=== PATIENT | female | born 1970 | race Caucasian/White ===

== ENCOUNTER 2020-08-04 12:52 | Outpatient (CLI) | payer OTHER, SELFPAY ==
--- NOTE | ~2020-08-04 | MMUS_ITS ---
EXAMINATION: MM diagnostic rm BI w catherine, US breast BI complete HISTORY: Follow-up breast asymmetries. Clogged milk duct. Right nipple retraction. TECHNIQUE: Additional 3-D tomosynthesis images of the breasts were performed and synthetic 2-D images were generated. CAD analysis was submitted and interpreted. High resolution complete bilateral breas t ultrasound was performed. COMPARISON: None BREAST PARENCHYMAL COMPOSITION: Breast composed of scattered areas of fibroglandular density. FINDINGS: MAMMOGRAPHIC FINDINGS: There is a focal mass in the lower outer quadrant of the right breast, middle third with central luce ncy measuring approximately 1 cm greatest dimension. There is a radiolucent mass in the lateral aspec t of the left breast on CC view measuring 12 mm. ULTRASOUND: Right breast ultrasound: At 2:00 near the nipple there is a small hyperechoic mass measuring 5 mm, co nsistent with lipoma. No definite mass is identified corresponding to the mammographic abnormality. N o solid masses are visualized. Left breast ultrasound: At 12:00, 4 cm from the nipple, there is a slightly irregular shaped hypoecho ic mass measuring 9 x 8 x 5 mm with mixed posterior attenuation and some areas of angular margin. No internal vascularity. IMPRESSION: 1. 9 mm sonographic left breast mass at 12:00, 4 cm from the nipple without definite mammographic cor relate. Ultrasound-guided left breast biopsy recommended. 2. Probable benign bilateral mammographic masses with central areas of lucency, most likely intramamm shane lymph nodes. Comparison no previous outside mammograms recommended. BI-RADS category 4, suspicious findings. Reviewed, dictated and finalized at location A. IMPRESSION: 1. 9 mm sonographic left breast mass at 12:00, 4 cm from the nipple without def inite mammographic correlate. Ultrasound-guided left breast biopsy recommended. 2. Probable benign bilateral mammographic masses with central areas of lucency, most likely intramammary lymph nodes. Comparison no previous outside mammogram s recommended. BI-RADS category 4, suspicious findings.
== END 2020-08-04 12:53 | disposition home or self-care (01) ==
LOC: ANHIMG 12:55
PROVIDERS: PCP Family Medicine; Visit Provider Nurse Practitioner
DX: N63.12 Unspecified lump in the right breast, upper inner quadrant (principal); N63.25 Unspecified lump in the left breast, overlapping quadrants
CPT/HCPCS: 76641; 77062; 77066; G0279

== ENCOUNTER 2020-09-30 10:11 | Outpatient (CLI) | payer OTHER, SELFPAY ==
--- NOTE | ~2020-09-30 | MMUS_ITS ---
EXAMINATION: US breast biopsy LT w image, MM post biopsy invasive LT DATE: 09/30/2020 11:26 (accession [id number]), 09/30/2020 11:28 (accession [id number]) INDICATION: Indeterminate left breast mass at the 12:00 location. Ultrasound-guided core biopsy is re quested to evaluate for malignancy. TECHNIQUE AND FINDINGS: The risks and potential benefits of the procedure were discussed with the patient including bleeding and infection. A time out was performed. The skin of the left breast was prepared and draped in usual sterile fashion. 1% lidocaine was used for superficial anesthesia. 1% lidocaine with epinephrine was used for deep anesthesia. A vacuum-assisted biopsy gun needle was advanced through to the outer edge of the region of interest from a lateral approach utilizing sonographic guidance. A total of four tissue core samples were obta ined through the lesion. A tissue marker clip was then placed at the biopsy site. Hemostasis was achi eved. A sterile bandage was applied. The patient tolerated procedure well and there was no evidence of immediate complication. The patient was given verbal instructions to return to the Emergency Department in the event of severe breast pa in or rapid breast enlargement. A two view left breast mammogram was obtained to document tissue dulce er clip placement. IMPRESSION: 1. Successful ultrasound-guided vacuum-assisted biopsy of left breast mass with tissue marker placeme nt. Reviewed, dictated and finalized at location A. IMPRESSION: 1. Successful ultrasound-guided vacuum-assisted biopsy of left breast mass with tissue marker placement.
== END 2020-09-30 10:12 | disposition home or self-care (01) ==
PROVIDERS: PCP Family Medicine; Visit Provider Surgery
DX: R92.8 Other abnormal and inconclusive findings on diagnostic imaging of breast (principal); D24.2 Benign neoplasm of left breast
CPT/HCPCS: 19083; 88305; A4648

== ENCOUNTER 2021-10-09 09:03 | Outpatient (CLI) | payer OTHER, SELFPAY ==
--- NOTE | ~2021-10-09 | MM_ITS ---
EXAMINATION: MM screening [facility] BI w catherine HISTORY: Screening TECHNIQUE: Craniocaudal and mediolateral oblique 3-D tomosynthesis images were obtained and synthetic 2-D images were generated. CAD analysis was submitted and interpreted. COMPARISON: 08/04/2020 BREAST PARENCHYMAL COMPOSITION: There are scattered areas of fibroglandular density. FINDINGS: Bilateral benign-appearing masses are stable. There is no evidence of suspicious mass, calc ification, or architectural distortion to suggest malignancy in either breast. There has been no susp icious interval change. IMPRESSION: 1. No mammographic evidence of malignancy. 2. Recommend routine screening mammography in one year. BI-RADS Category 2: Benign finding(s). Reviewed, dictated and finalized at location A.
== END 2021-10-09 09:04 | disposition home or self-care (01) ==
LOC: ANHIMG 09:08
PROVIDERS: PCP Family Medicine; Visit Provider Surgery
DX: Z12.31 Encounter for screening mammogram for malignant neoplasm of breast (principal)
CPT/HCPCS: 77063; 77067

== ENCOUNTER 2021-10-29 10:46 | Outpatient (CLI) | payer OTHER, SELFPAY ==
--- NOTE | ~2021-10-29 | US_ITS ---
EXAMINATION: US breast LT limited HISTORY: Follow-up from benign left breast biopsy TECHNIQUE: Limited left breast ultrasound was performed. FINDINGS: A 9 mm oval, circumscribed, parallel, hypoechoic mass with no posterior features or interna l vascularity is seen at the 12:00 location 4 cm from the nipple corresponding to the previously biop sied mass. There has been no suspicious interval change. IMPRESSION: Stable fibroadenoma the left breast. BI-RADS Category 2: Benign finding(s). Reviewed, dictated and finalized at location A.
== END 2021-10-29 10:47 | disposition home or self-care (01) ==
LOC: ANHIMG 10:48
PROVIDERS: PCP Family Medicine; Visit Provider Surgery
DX: R92.8 Other abnormal and inconclusive findings on diagnostic imaging of breast (principal)
CPT/HCPCS: 76642

== ENCOUNTER 2023-05-09 00:22 | Day surgery (SDC) | payer OTHER, SELFPAY ==
[2023-04-12 09:20] VITALS: BMI 32.1
--- NOTE | 2023-05-06 11:18 | SUR.PREOP ---
Patient called regarding upcoming procedure. Voicemail left regarding appointment times.
--- NOTE | 2023-05-06 13:36 | P.HP_ITS ---
History of Present Illness History of Present Illness Consent: Risks, benefits, and alternatives have been discussed and questions answered. Patient agrees to proceed with procedure. Chief complaint: Right lower quadrant pain Narrative: Monica Stroy is a 52 year old female Referred for colonoscopy because of right lower quadrant pain. Her bowel movements are irregular going from hard to soft or loose. A maternal grandmother had colon cancer. Review of Systems Review of Systems: All systems reviewed & are unremarkable except as noted in HPI and below PMFSH Past Medical History Medical History Anxiety Asthma due to seasonal allergies Former smoker, stopped smoking in distant past History of ectopic Mixed irritable bowel syndrome Obesity Pre-diabetes Surgical History Surgical History History of tubal ligation Hx of appendectomy Hx of breast surgery clogged milk duct - 20+ years ago Hx of umbilical hernia repair Robotic assisted laparoscopic umbilical hernia repair with mesh at 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 Meds Home Medications and Allergies Home Medications Medication Instructions Recorded Confirmed Type albuterol sulfate 90 mcg/actuation 1 puff inhalation Q4H PRN 09/10/20 05/09/23 History aerosol inhaler Shortness Of Breath alprazolam 0.5 mg tablet 0.5 mg PO QHS PRN Sleep 03/24/23 05/09/23 History sitagliptin phosphate 100 mg 100 mg PO DAILY 04/12/23 05/09/23 History tablet (Januvia) Allergies Allergy/AdvReac Type Severity Reaction Status Date / Time codeine Allergy Severe Unknown Verified 02/19/24 10:23 Exam Resp: Auscultation: clear to auscultation bilaterally Cardio: Rate: regular rate Rhythm: regular rhythm GI: GI Palp: Yes Soft to palpation and No Tenderness to palpation present (GI) Assessment and Plan Assessment and plan (1) Right lower quadrant pain: Code(s): R10.31 - Right lower quadrant pain Status: Acute Assessment and Plan: Colonoscopy with possible biopsy or polypectomy or cautery or injection of substances. (2) Change in bowel habits: Code(s): R19.4 - Change in bowel habit Status: Acute
[2023-05-09 10:25] VITALS: BP 126/84; PULSE 73; RESP 16; TEMP 36.3; O2SAT 98
[2023-05-09] MEDS: LACTATED RINGERS 1,000 ML 150 ML IV CONT (10:37)
[2023-05-09 10:38] LABS: Glucose Point of Care 104 mg/dl (65-105)
--- NOTE | 2023-05-09 10:46 | WPDANESEPPF ---
Anes - Initial Pre Proc Eval Procedure: Operation Date: 05/09/23 11:30 Proposed Procedures p Colonoscopy - Krunal Flores MD Date/Time: 05/09/23 10:46 Surgeon: Krunal Flores MD Pre Op Diagnosis: Right lower quadrant pain Patient Data Age: 52 Gender: F Height: 1.75 m Weight: 100.3 kg Last Vital Signs Temp 97.4 F L 05/09/23 10:25 Pulse 73 05/09/23 10:25 Resp 16 05/09/23 10:25 BP 126/84 05/09/23 10:25 Pulse Ox 98 05/09/23 10:25 O2 Del Method Room Air 05/09/23 10:25 Allergies Allergy/AdvReac Type Severity Reaction Status Date / Time codeine Allergy Severe Unknown Verified 05/09/23 10:23 Home Medications Medication Instructions Recorded Confirmed Type albuterol sulfate 90 mcg/actuation 1 puff inhalation Q4H PRN 09/10/20 05/09/23 History aerosol inhaler Shortness Of Breath alprazolam 0.5 mg tablet 0.5 mg PO QHS PRN Sleep 03/24/23 05/09/23 History sitagliptin phosphate 100 mg 100 mg PO DAILY 04/12/23 05/09/23 History tablet (Januvia) Laboratory Tests 05/09/23 10:35 POC Capillary Glucose 104 mg/dl (65-105) Patient hx anesthesia problems: none Family hx anesthesia problems: none Results Review: All pre-operative results and documents have been reviewed as part of the pre-operative evaluation. [facility] Past Medical History Medical History Anxiety Asthma due to seasonal allergies Former smoker, stopped smoking in distant past History of ectopic Mixed irritable bowel syndrome Obesity Pre-diabetes Surgical History Surgical History History of tubal ligation Hx of appendectomy Hx of breast surgery clogged milk duct - 20+ years ago Hx of umbilical hernia repair Robotic assisted laparoscopic umbilical hernia repair with mesh at [facility] - 09/08/2020 Family History Family History Father Diabetes mellitus Social History Social History Smoking packs per day: 1 Smoking cigarettes per day: 20.0 Smoking status: Current some day smoker Tobacco type: e-cigarettes/vaping Additional smoking assessment comments: currently uses vape Alcohol intake: never Substance use: former Substance use type: marijuana Other substance usage details: smokes, uses for anxiety Last use: 04/09/23 Living arrangements: alone 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 Informed Consent: The patient's anesthetic plan and its attendant risks and benefits were discussed with the patient/family/POA. Questions were solicited and answers provided to the satisfaction of the patient/family/POA.
[2023-05-09 11:22] VITALS: BP 113/69; PULSE 60; RESP 16; O2SAT 99
[2023-05-09 11:32] VITALS: BP 137/89; PULSE 70; RESP 21; O2SAT 99
[2023-05-09 11:42] VITALS: BP 128/72; PULSE 69; RESP 19; O2SAT 99
== END 2023-05-09 11:51 | disposition home or self-care (01) ==
PROVIDERS: PCP Family Medicine; Visit Provider Internal Medicine Gastroenterology
PROC: 0DJD8ZZ Inspection of Lower Intestinal Tract, Via Natural or Artificial Opening Endoscopic (ICD-10-PCS; CPT 45378; principal; 2023-05-09 11:30)
DX: K63.5 Polyp of colon (principal); K57.30 Diverticulosis of large intestine without perforation or abscess without bleeding; F41.9 Anxiety disorder, unspecified; J45.998 Other asthma; R73.03 Prediabetes; E66.9 Obesity, unspecified; Z68.32 Body mass index [BMI] 32.0-32.9, adult; F17.290 Nicotine dependence, other tobacco product, uncomplicated; Z79.51 Long term (current) use of inhaled steroids; Z79.84 Long term (current) use of oral hypoglycemic drugs
CPT/HCPCS: 45380; 82948; 88305; J2704; J7120

== ENCOUNTER 2023-09-23 10:32 | Outpatient (CLI) | payer OTHER, SELFPAY ==
--- NOTE | ~2023-09-23 | MMUS_ITS ---
EXAMINATION: MM diagnostic rm BI w catherine, US breast RT limited HISTORY: Right breast lump TECHNIQUE: 3-D tomosynthesis images of the bilateral breasts were performed and synthetic 2-D images were generated. CAD analysis was submitted and interpreted. High resolution limited right breast ultr asound was performed. COMPARISON: 09/19/2021, 08/04/2020 BREAST PARENCHYMAL COMPOSITION:Not Dense. The breasts are almost entirely fatty FINDINGS: MAMMOGRAPHIC FINDINGS: Parenchymal pattern of both breasts is unchanged. Stable benign intramammary lymph node in the outer right breast. Stable biopsy marker in the outer left breast. No suspicious mass lesion or distortion. No suspicious microcalcification. ULTRASOUND: Sonographic imaging of the 6:00 right subareolar region demonstrates no solid or cystic lesion. No so nographic abnormality seen. No dilated ducts. IMPRESSION: No evidence for malignancy. No mammographic or sonographic correlate for the area of concern at the 6:00 right subareolar region. BI-RADS Category 1: Negative Reviewed, dictated and finalized at location . IMPRESSION: No evidence for malignancy. No mammographic or sonographic correlate for the a cruz of concern at the 6:00 right subareolar region. BI-RADS Category 1: Negative
== END 2023-09-23 10:33 | disposition home or self-care (01) ==
LOC: ANHIMG 10:34
PROVIDERS: PCP Nurse Practitioner Family; Visit Provider Nurse Practitioner
DX: N63.0 Unspecified lump in unspecified breast (principal)
CPT/HCPCS: 76642; 77062; 77066; G0279